=== PATIENT | male | born 1935 | race Two or more races ===

== ENCOUNTER → 2017-05-11 | Outpatient (CLI) | payer OTHER ==
[2016-05-16 22:12] VITALS: BP 193/81
[~2017-05-11] MED LIST: ATORVASTATIN CA80 MG PO; AZIT250T6 PO; DOXA8TAB2 PO; GABA-585 PO; GADOBUTROL 10 MMOL/10 ML VIAL IV ONE; GUAI-108 PO; LISI2.5T PO; LOSA100T6 PO; METF850T2 PO; PRED-220 PO
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
== END | disposition home or self-care (01) ==
LOC: KCIC MRI 09:57
PROVIDERS: ATTEND Family Medicine
DX: M51.36 Other intervertebral disc degeneration, lumbar region (principal); M51.46 Schmorl's nodes, lumbar region; M43.16 Spondylolisthesis, lumbar region; M48.061 Spinal stenosis, lumbar region without neurogenic claudication; R20.0 Anesthesia of skin
CPT/HCPCS: 72158; 82565; A9585

== ENCOUNTER → 2017-07-03 | Outpatient (CLI) | payer OTHER | END | disposition home or self-care (01) | LOC: KCIC MRI 11:17 | DX: M22.42 Chondromalacia patellae, left knee (principal); M62.58 Muscle wasting and atrophy, not elsewhere classified, other site; M25.462 Effusion, left knee; R60.0 Localized edema | CPT/HCPCS: 73562; 73721 ==

== ENCOUNTER 2017-07-04 08:58 | Outpatient (CLI) | payer OTHER ==
[2017-07-04] MEDS ORDERED: CONTRAST GIVEN MC ×2 (09:30)
[2017-07-04] MEDS: IOHEXOL 180 MG/ML 10 ML VIAL. IT ×2 (10:00)
== END 2017-07-04 11:45 | disposition home or self-care (01) ==
LOC: RAD 08:58
DX: M51.16 Intervertebral disc disorders with radiculopathy, lumbar region (principal); M48.061 Spinal stenosis, lumbar region without neurogenic claudication; M51.46 Schmorl's nodes, lumbar region; I70.8 Atherosclerosis of other arteries
CPT/HCPCS: 72132; 72265; Q9965

== ENCOUNTER → 2017-07-28 | Outpatient (CLI) | payer OTHER ==
[~2017-07-28] MED LIST changes: -ATORVASTATIN CA80 MG PO; -AZIT250T6 PO; -DOXA8TAB2 PO; -GABA-585 PO; -GADOBUTROL 10 MMOL/10 ML VIAL IV ONE; -GUAI-108 PO; +IOHEXOL 180 MG/ML 10 ML VIAL.; -LISI2.5T PO; -LOSA100T6 PO; -METF850T2 PO; -PRED-220 PO; +methylPREDNISolone ACETATE 40 MG/ML VIAL.; +methylPREDNISolone ACETATE 80 MG/ML VIAL.
== END ==
LOC: PNCL 10:19
DX: M51.16 Intervertebral disc disorders with radiculopathy, lumbar region (principal); M48.061 Spinal stenosis, lumbar region without neurogenic claudication; M96.1 Postlaminectomy syndrome, not elsewhere classified; E78.00 Pure hypercholesterolemia, unspecified; I10 Essential (primary) hypertension; E11.9 Type 2 diabetes mellitus without complications; Z98.890 Other specified postprocedural states; Z82.49 Family history of ischemic heart disease and other diseases of the circulatory system
CPT/HCPCS: 62323; J1030; J1040; Q9965

== ENCOUNTER → 2017-08-11 | Outpatient (CLI) | payer OTHER | END | disposition home or self-care (01) | LOC: PNCL 09:40 | DX: M48.061 Spinal stenosis, lumbar region without neurogenic claudication (principal); M96.1 Postlaminectomy syndrome, not elsewhere classified; G89.29 Other chronic pain; I10 Essential (primary) hypertension; E11.9 Type 2 diabetes mellitus without complications; E78.00 Pure hypercholesterolemia, unspecified; Z98.890 Other specified postprocedural states; Z79.899 Other long term (current) drug therapy; Z86.79 Personal history of other diseases of the circulatory system | CPT/HCPCS: G0463 ==

== ENCOUNTER → 2017-08-25 | Outpatient (CLI) | payer OTHER | LOC: PNCL 09:03 | DX: M54.16 Radiculopathy, lumbar region (principal); M48.061 Spinal stenosis, lumbar region without neurogenic claudication; M96.1 Postlaminectomy syndrome, not elsewhere classified; E78.00 Pure hypercholesterolemia, unspecified; I10 Essential (primary) hypertension; E11.9 Type 2 diabetes mellitus without complications; Z82.49 Family history of ischemic heart disease and other diseases of the circulatory system | CPT/HCPCS: 62323; J1030; J1040; Q9965 ==

== ENCOUNTER → 2017-09-08 | Outpatient (CLI) | payer OTHER | END | disposition home or self-care (01) | LOC: PNCL 09:09 | DX: M54.16 Radiculopathy, lumbar region (principal); M48.061 Spinal stenosis, lumbar region without neurogenic claudication | CPT/HCPCS: G0463 ==

== ENCOUNTER → 2017-09-22 | Outpatient (CLI) | payer OTHER | END | disposition home or self-care (01) | LOC: PNCL 09:02 | DX: M48.061 Spinal stenosis, lumbar region without neurogenic claudication (principal); M96.1 Postlaminectomy syndrome, not elsewhere classified; M54.16 Radiculopathy, lumbar region; I10 Essential (primary) hypertension; E11.9 Type 2 diabetes mellitus without complications; E78.00 Pure hypercholesterolemia, unspecified; Z98.890 Other specified postprocedural states; Z82.49 Family history of ischemic heart disease and other diseases of the circulatory system; Z86.79 Personal history of other diseases of the circulatory system | CPT/HCPCS: 62323; J1030; J1040; Q9965 ==

== ENCOUNTER → 2018-04-09 | Outpatient (CLI) | payer OTHER ==
[2017-07-04 10:42] VITALS: BP 108/68
[~2018-04-09] MED LIST changes: +ACET325T9 PO; +ATORVASTATIN CA80 MG PO; +AZIT250T6 PO; +DOXA2TAB PO; +DOXA8TAB2 PO; +GABA-585 PO; +GABA-586 PO; +GUAI-108 PO; -IOHEXOL 180 MG/ML 10 ML VIAL.; +LISI-338 PO; +LISI2.5T PO; +LOSA100T7 PO; +METF500T16 PO; +METF850T8 PO; +OXYC-323 PO; +PRED-220 PO; -methylPREDNISolone ACETATE 40 MG/ML VIAL.; -methylPREDNISolone ACETATE 80 MG/ML VIAL.
== END | disposition home or self-care (01) ==
LOC: PMGWOUND 13:19
PROVIDERS: ATTEND Emergency Medicine Undersea and Hyperbaric Medicine
DX: E11.622 Type 2 diabetes mellitus with other skin ulcer (principal); L97.222 Non-pressure chronic ulcer of left calf with fat layer exposed; I12.9 Hypertensive chronic kidney disease with stage 1 through stage 4 chronic kidney disease, or unspecified chronic kidney disease; E11.22 Type 2 diabetes mellitus with diabetic chronic kidney disease; N18.9 Chronic kidney disease, unspecified; G89.29 Other chronic pain; E78.5 Hyperlipidemia, unspecified; G47.33 Obstructive sleep apnea (adult) (pediatric); M19.90 Unspecified osteoarthritis, unspecified site; G83.14 Monoplegia of lower limb affecting left nondominant side; N40.1 Benign prostatic hyperplasia with lower urinary tract symptoms; K58.9 Irritable bowel syndrome, unspecified; E78.00 Pure hypercholesterolemia, unspecified; E66.01 Morbid (severe) obesity due to excess calories; Z68.36 Body mass index [BMI] 36.0-36.9, adult; Z87.891 Personal history of nicotine dependence
CPT/HCPCS: 97597

== ENCOUNTER → 2018-04-16 | Outpatient (CLI) | payer OTHER ==
[2017-07-04 10:42] VITALS: BP 108/68
[~2018-04-16] MED LIST changes: -OXYC-323 PO; +OXYC1TAB15 PO
== END | disposition home or self-care (01) ==
LOC: PMGWOUND 13:13
PROVIDERS: ATTEND Emergency Medicine Undersea and Hyperbaric Medicine
DX: E11.622 Type 2 diabetes mellitus with other skin ulcer (principal); L97.222 Non-pressure chronic ulcer of left calf with fat layer exposed; I12.9 Hypertensive chronic kidney disease with stage 1 through stage 4 chronic kidney disease, or unspecified chronic kidney disease; E11.22 Type 2 diabetes mellitus with diabetic chronic kidney disease; N18.9 Chronic kidney disease, unspecified; E78.5 Hyperlipidemia, unspecified; G89.29 Other chronic pain; M19.90 Unspecified osteoarthritis, unspecified site; G47.33 Obstructive sleep apnea (adult) (pediatric); N40.1 Benign prostatic hyperplasia with lower urinary tract symptoms; E66.01 Morbid (severe) obesity due to excess calories; Z68.36 Body mass index [BMI] 36.0-36.9, adult; Z87.891 Personal history of nicotine dependence
CPT/HCPCS: 11042

== ENCOUNTER → 2018-04-23 | Outpatient (CLI) | payer OTHER ==
[2017-07-04 10:42] VITALS: BP 108/68
[~2018-04-23] MED LIST changes: -GABA-586 PO; +GABA300C18 PO; +LOSA100T14 PO; -LOSA100T7 PO
== END | disposition home or self-care (01) ==
LOC: PMGWOUND 10:32
PROVIDERS: ATTEND Emergency Medicine Undersea and Hyperbaric Medicine
DX: E11.622 Type 2 diabetes mellitus with other skin ulcer (principal); L97.222 Non-pressure chronic ulcer of left calf with fat layer exposed; I12.9 Hypertensive chronic kidney disease with stage 1 through stage 4 chronic kidney disease, or unspecified chronic kidney disease; E11.22 Type 2 diabetes mellitus with diabetic chronic kidney disease; N18.9 Chronic kidney disease, unspecified; G89.29 Other chronic pain; E78.5 Hyperlipidemia, unspecified; M19.90 Unspecified osteoarthritis, unspecified site; G47.33 Obstructive sleep apnea (adult) (pediatric); N40.1 Benign prostatic hyperplasia with lower urinary tract symptoms; E78.00 Pure hypercholesterolemia, unspecified; E66.01 Morbid (severe) obesity due to excess calories; Z68.36 Body mass index [BMI] 36.0-36.9, adult; Z87.891 Personal history of nicotine dependence
CPT/HCPCS: 97597

== ENCOUNTER → 2018-04-30 | Outpatient (CLI) | payer OTHER ==
[2017-07-04 10:42] VITALS: BP 108/68
== END | disposition home or self-care (01) ==
LOC: PMGWOUND 10:06
PROVIDERS: ATTEND Emergency Medicine Undersea and Hyperbaric Medicine
DX: E11.622 Type 2 diabetes mellitus with other skin ulcer (principal); L97.222 Non-pressure chronic ulcer of left calf with fat layer exposed; I12.9 Hypertensive chronic kidney disease with stage 1 through stage 4 chronic kidney disease, or unspecified chronic kidney disease; E11.22 Type 2 diabetes mellitus with diabetic chronic kidney disease; N18.9 Chronic kidney disease, unspecified; G89.29 Other chronic pain; E78.00 Pure hypercholesterolemia, unspecified; E78.5 Hyperlipidemia, unspecified; N40.1 Benign prostatic hyperplasia with lower urinary tract symptoms; M19.90 Unspecified osteoarthritis, unspecified site; G47.33 Obstructive sleep apnea (adult) (pediatric); E66.01 Morbid (severe) obesity due to excess calories; Z87.891 Personal history of nicotine dependence; Z68.36 Body mass index [BMI] 36.0-36.9, adult
CPT/HCPCS: 97597

== ENCOUNTER → 2018-05-16 | Outpatient (CLI) | payer OTHER ==
[2017-07-04 10:42] VITALS: BP 108/68
== END | disposition home or self-care (01) ==
LOC: PMGWOUND 10:02
PROVIDERS: ATTEND Preventive Medicine Undersea and Hyperbaric Medicine
DX: E11.622 Type 2 diabetes mellitus with other skin ulcer (principal); L97.222 Non-pressure chronic ulcer of left calf with fat layer exposed; I12.9 Hypertensive chronic kidney disease with stage 1 through stage 4 chronic kidney disease, or unspecified chronic kidney disease; E11.22 Type 2 diabetes mellitus with diabetic chronic kidney disease; N18.9 Chronic kidney disease, unspecified; G89.29 Other chronic pain; E78.00 Pure hypercholesterolemia, unspecified; E78.5 Hyperlipidemia, unspecified; G47.33 Obstructive sleep apnea (adult) (pediatric); M19.90 Unspecified osteoarthritis, unspecified site; N40.1 Benign prostatic hyperplasia with lower urinary tract symptoms; E66.01 Morbid (severe) obesity due to excess calories; Z68.36 Body mass index [BMI] 36.0-36.9, adult; Z87.891 Personal history of nicotine dependence
CPT/HCPCS: 11042

== ENCOUNTER → 2018-05-23 | Outpatient (CLI) | payer OTHER ==
[2017-07-04 10:42] VITALS: BP 108/68
== END | disposition home or self-care (01) ==
LOC: PMGWOUND 10:06
PROVIDERS: ATTEND Preventive Medicine Undersea and Hyperbaric Medicine
DX: E11.622 Type 2 diabetes mellitus with other skin ulcer (principal); L97.222 Non-pressure chronic ulcer of left calf with fat layer exposed; I12.9 Hypertensive chronic kidney disease with stage 1 through stage 4 chronic kidney disease, or unspecified chronic kidney disease; E11.22 Type 2 diabetes mellitus with diabetic chronic kidney disease; N18.9 Chronic kidney disease, unspecified; E78.5 Hyperlipidemia, unspecified; M19.90 Unspecified osteoarthritis, unspecified site; G47.33 Obstructive sleep apnea (adult) (pediatric); N40.1 Benign prostatic hyperplasia with lower urinary tract symptoms; I87.2 Venous insufficiency (chronic) (peripheral); E78.00 Pure hypercholesterolemia, unspecified; E66.01 Morbid (severe) obesity due to excess calories; Z68.36 Body mass index [BMI] 36.0-36.9, adult; Z87.891 Personal history of nicotine dependence
CPT/HCPCS: 97597

== ENCOUNTER → 2018-05-30 | Outpatient (CLI) | payer OTHER ==
[2017-07-04 10:42] VITALS: BP 108/68
== END | disposition home or self-care (01) ==
LOC: PMGWOUND 10:02
PROVIDERS: ATTEND Preventive Medicine Undersea and Hyperbaric Medicine
DX: T63.331D Toxic effect of venom of brown recluse spider, accidental (unintentional), subsequent encounter (principal); E11.622 Type 2 diabetes mellitus with other skin ulcer; L97.222 Non-pressure chronic ulcer of left calf with fat layer exposed; I13.10 Hypertensive heart and chronic kidney disease without heart failure, with stage 1 through stage 4 chronic kidney disease, or unspecified chronic kidney disease; E11.22 Type 2 diabetes mellitus with diabetic chronic kidney disease; N18.9 Chronic kidney disease, unspecified; G89.29 Other chronic pain; E78.5 Hyperlipidemia, unspecified; I87.2 Venous insufficiency (chronic) (peripheral); M19.90 Unspecified osteoarthritis, unspecified site; G47.33 Obstructive sleep apnea (adult) (pediatric); N40.1 Benign prostatic hyperplasia with lower urinary tract symptoms; E78.00 Pure hypercholesterolemia, unspecified; E66.01 Morbid (severe) obesity due to excess calories; Z68.36 Body mass index [BMI] 36.0-36.9, adult; Z87.891 Personal history of nicotine dependence
CPT/HCPCS: 97597

== ENCOUNTER → 2018-06-06 | Outpatient (CLI) | payer OTHER ==
[2017-07-04 10:42] VITALS: BP 108/68
== END | disposition home or self-care (01) ==
LOC: PMGWOUND 10:00
PROVIDERS: ATTEND Preventive Medicine Undersea and Hyperbaric Medicine
DX: E11.622 Type 2 diabetes mellitus with other skin ulcer (principal); L97.222 Non-pressure chronic ulcer of left calf with fat layer exposed; I12.9 Hypertensive chronic kidney disease with stage 1 through stage 4 chronic kidney disease, or unspecified chronic kidney disease; E11.22 Type 2 diabetes mellitus with diabetic chronic kidney disease; N18.9 Chronic kidney disease, unspecified; G89.29 Other chronic pain; E78.5 Hyperlipidemia, unspecified; M19.90 Unspecified osteoarthritis, unspecified site; G47.33 Obstructive sleep apnea (adult) (pediatric); N40.1 Benign prostatic hyperplasia with lower urinary tract symptoms; E78.00 Pure hypercholesterolemia, unspecified; E66.01 Morbid (severe) obesity due to excess calories; Z68.36 Body mass index [BMI] 36.0-36.9, adult; Z87.891 Personal history of nicotine dependence
CPT/HCPCS: 99214; G0463

== ENCOUNTER → 2018-06-27 | Outpatient (CLI) | payer OTHER ==
[2017-07-04 10:42] VITALS: BP 108/68
== END | disposition home or self-care (01) ==
LOC: PMGWOUND 10:29
PROVIDERS: ATTEND Preventive Medicine Undersea and Hyperbaric Medicine
DX: E11.622 Type 2 diabetes mellitus with other skin ulcer (principal); L97.222 Non-pressure chronic ulcer of left calf with fat layer exposed; I13.10 Hypertensive heart and chronic kidney disease without heart failure, with stage 1 through stage 4 chronic kidney disease, or unspecified chronic kidney disease; E11.22 Type 2 diabetes mellitus with diabetic chronic kidney disease; N18.9 Chronic kidney disease, unspecified; G89.29 Other chronic pain; E78.5 Hyperlipidemia, unspecified; M19.90 Unspecified osteoarthritis, unspecified site; G47.33 Obstructive sleep apnea (adult) (pediatric); E78.00 Pure hypercholesterolemia, unspecified; I87.2 Venous insufficiency (chronic) (peripheral); N40.1 Benign prostatic hyperplasia with lower urinary tract symptoms; Z87.891 Personal history of nicotine dependence; E66.01 Morbid (severe) obesity due to excess calories; Z68.36 Body mass index [BMI] 36.0-36.9, adult
CPT/HCPCS: 99214; G0463

== ENCOUNTER 2020-07-03 15:23 | Emergency (ER) | payer MEDICARE, OTHER ==
[~2020-07-03] VITALS: Ht 160 cm; Wt 106.8 kg
[~2020-07-03 15:23] MED LIST changes: +AMLO-187 PO; +ASPI-886 PO; +CLON0.1T12 PO; -LISI-338 PO; +LISI-517 PO; +SITA50TA PO; +TAMS0.4C97 PO
--- NOTE | 2020-07-03 16:10 | PHYS DOC ---
Past Medical History Past Medical History: Diabetes-Type II, High Cholesterol, Hypertension, Renal Disease Past Surgical History: Other Additional Past Surgical Histo: BACK SURGERY Smoking Status: Former Smoker Alcohol Use: Occasionally Drug Use: None General Adult EDM: Chief Complaint: ABDOMINAL PAIN HPI: HPI: 85-year-old male past medical history significant for hypertension, hyperlipidemia, diabetes and former tobacco dependence (quit at 47 yoa) presents the ED with complaints of "stomach pain, alot of acid," for the past 2 weeks, worse after eating, described as burning and intermittent. Denies any alcohol use/binge drinking or illicit drug use (No more than 1-2 beers daily). No associated n/v/d. Follows with Dr. Tan who has scheduled outpatient cardiology follow-up on July 17. No h/o GI evaluation, EGD or colonoscopy. No h/o anemia or blood transfusions. No h/o CAD or cardiac cath. Review of Systems: Review of Systems: Constitutional: Denies fever or chills. [] Eyes: Denies change in visual acuity. [] HENT: Denies nasal congestion or sore throat. [] Respiratory: Denies cough or shortness of breath or hemoptysis Cardiovascular: Denies chest pain or edema. [] GI: Denies nausea, vomiting, melena, hematochezia, hematemesis or diarrhea. [] : Denies dysuria or dysuria Musculoskeletal: Denies back pain or joint pain. [] Integument: Denies rash or diaphoresis Neurologic: Denies headache, neck stiffness or focal weakness or sensory changes. [] Endocrine: Denies polyuria or polydipsia. [] Lymphatic: Denies swollen glands. [] Psychiatric: Denies depression or anxiety. [] Heart Score: HEART Score for Chest Pain: HEART Score for Chest Pain Response (Comments) Value History Slighlty/Non-Suspicious 0 ECG Normal 0 Age > 65 2 Risk Factors >3 Risk Factors or Hx CAD 2 Troponin < Normal Limit 0 Total 4 Risk Factors: Risk Factors: DM, Current or recent (<one month) smoker, HTN, HLP, family history of CAD, obesity. Risk Scores: Score 0 - 3: 2.5% MACE over next 6 weeks - Discharge Home Score 4 - 6: 20.3% MACE over next 6 weeks - Admit for Clinical Observation Score 7 - 10: 72.7% MACE over next 6 weeks - Early Invasive Strategies Allergies: Allergies: Allergies Coded Allergies Type Severity Reaction Last Updated Verified No Known Drug Allergies 11/20/15 No Physical Exam: PE: Constitutional: Well developed, well nourished, no acute distress, non-toxic appearance, hypertensive but calm HENT: Normocephalic, atraumatic, arcus senilis present bl Eyes: EOMI, conjunctiva normal, no discharge. Neck: Normal range of motion, supple, Cardiovascular: S1/2 present, regular rhythm Lungs & Thorax: Speaking in full sentences, bilateral equal chest rise, no tachypnea or increased work of breathing Abdomen: soft, no tenderness, epigastric pain, obese abdomen, no grimace with palpation, no peritonitis or guarding, no Diane sign, no pain McBurney's point Skin: Warm, dry, no erythema, no rash. [] Back: No midline tenderness, no CVA tenderness. [] Extremities: No tenderness, no cyanosis, no lower extremity edema Neurologic: Alert and oriented X 3, normal motor function, normal sensory function, no focal deficits noted. [] Psychologic: Affect normal, judgement normal, mood normal. [] EKG: EKG: Sinus rhythm at 71 bpm,left axis deviation, QTC 443, no T wave inversions, no ST elevations or ST depressions Radiology/Procedures: Radiology/Procedures: IMAGING REPORT Signed PATIENT: LAKSHMI SHAH ACCOUNT: [id number] : 1935 LOCATION: ER AGE: 85 SEX: M EXAM STATUS: REG ER ORD. PHYSICIAN: AILEEN FERREIRA DO REASON: abd pain PROCEDURE: CT ABDOMEN PELVIS WO CONTRAST Exam: CT of abdomen and pelvis without contrast INDICATION: Abdominal pain TECHNIQUE: Sequential axial images through the abdomen and pelvis obtained without IV contrast. Sagittal and coronal reformatted images were reconstructed from the axial data and reviewed. Comparisons: None FINDINGS: Heart size is normal. No pericardial effusion. Strandy opacities at dependent portion lungs likely representing atelectasis. No pleural effusion. Evaluation of solid organs limited secondary to noncontrast technique. Liver, spleen, pancreas, gallbladder and adrenals are unremarkable. No perinephric inflammation or hydronephrosis. No renal or ureteral calculi are identified. Bladder is distended and appears thin-walled. Prostate is not enlarged. Diverticulosis sigmoid colon without evidence of acute diverticulitis. Otherwise, Large and small bowel are unremarkable. Appendix is not identified. No free intra-abdominal air or fluid. No obstruction. Abdominal aorta has a normal course and caliber. No enlarged abdominal lymph nodes are identified. No suspicious osseous lesions or acute fractures. IMPRESSION: Diverticulosis without evidence of acute diverticulitis. Exposure: One or more of the following in the visualized dose reduction techniques were utilized for this examination: 1. Automated exposure control 2. Adjustment of the MA and/or KV according to patient size 3. Use of iterative of reconstructive technique Electronically signed by: Regla Nova MD (07/03/2020 5:46 PM) [facility] DICTATED and SIGNED BY: REGLA NOVA MD DATE: 07/03/20 [id number] 0 Course & Med Decision Making: Course & Med Decision Making Pertinent Labs and Imaging studies reviewed. (See chart for details) On re-evaluation, epigastric pain resolved. Pain is very c/w gastritis/gerd and has been intermittent x 2 weeks. Pt does have RFs for CAD although has no active chest pain currently in ed. Bp slightly elevated but no new worsening endorgan damage. Does have chronic kidney disease-improved from prior labs. Will discharge home with strict ED return precautions were given for chest pressure, tightness or heaviness, syncope, neurologic deficits, dyspnea, nausea, vomiting or diaphoresis (ACS sxs, respiratory distress, etc). Encouraged urgent outpatient follow-up with PMD and GI. Life-threatening processes were considered but are low suspicion at this time, given history, physical exam and ED workup. Pt was educated on all prescription medications and adverse effects. All patient's questions were answered and pt was stable at time of discharge. Life/limb-threatening differential includes but is not limited to, aortic dissection, aortic aneurysm, acute coronary syndrome, surgical abdomen (appendicitis, cholecystitis, ischemic bowel, strangulated hernia, etc), bowel obstruction or volvulus, bladder outlet obstruction, gastrointestinal bleeding, inflammatory bowel disease, peptic ulcer disease, ACS/CAD, sepsis, diverticular disease, ureterolithiasis, nephrolithiasis, testicular torsion, or genitourinary infection. I spoken with the patient and her caregivers. I explained the patient's condition, diagnoses and treatment plan based on the information available to me at this time. I have answered the patient and her caregiver's questions and addressed any concerns. The patient and her caregivers have a good under standing of patient's diagnosis, condition and treatment plan as can be expected at this point. Vital signs have been stable. Patient's condition is stable and appropriate for discharge from the emergency department. Patient will pursue further outpatient evaluation with primary care physician or other designated or consulting physician as outlined in the discharge instructions. The patient and/or caregivers are agreeable to this plan of care and follow-up instructions have been explained in detail. The patient and/or caregivers have received these instructions in written form and have expressed an understanding of the discharge instructions. The patient and/or caregivers are aware that any significant change of condition or worsening of symptoms shou ld prompt immediate return to this or the closest emergency department or call to 1. Crescencio Disclaimer: Crescencio Disclaimer: This electronic medical record was generated, in whole or in part, using a voice recognition dictation system. Departure Departure Impression: Primary Impression: Epigastric abdominal pain Additional Impression: Diverticulosis Disposition: 01 DC HOME SELF CARE/HOMELESS Condition: STABLE Referrals: KAUSHIK TAN MD (PCP) FOLLOW UP WITH FAMILY MEDICINE: Family Medicine Address: [address] [place] [id number] Patient Instructions: Abdominal Pain, Gastritis, Adult Additional Instructions: FOLLOW UP WITH GASTROENTEROLOGY: Gastroenterology [facility] Address: [address] [place] [address] EMERGENCY DEPARTMENT GENERAL DISCHARGE INSTRUCTIONS Thank you for coming to [facility] Emergency Department (ED) today and trusting us with you care. We trust that you had a positive experience in our Emergency Department. If you wish to speak to the department management, you may call the Director at [phone]. YOUR FOLLOW UP INSTRUCTIONS ARE FOLLOWS: 1. Do you have a private Doctor? If you do not have a private doctor, please ask for a resource list of physicians or clinics that may be able to assist you with follow up care. 2. The Emergency Physicain has interpreted your x-rays. The X-Ray specialist will also review them. If there is a change in the findings, you will be notified in 48 hours when at all possible. 3. A lab test or culture has been done, your results will be reviewed and you will be notified if you need a change in treatment. ADDITIONAL INSTRUCTIONS AND INFORMATION: 1. Your care today has been supervised by a physician who is specially trained in emergency care. Many problems require more than one evaluation for a complete diagnosis and treatment. We recommend that you schedule your follow up appointment as recommended to ensure complete treatment of you illness or injury. If you are unable to obtain follow up care and continue to have a problem, or if your condition worsens, we recommend that you return to the ED. 2. We are not able to safely determine your condition over the phone nor are we able to give sound medical advice over the phone. For these safety reasons, if you call for medical advice we will ask you to come to the ED for further evaluation. 3. If you have any questions regarding these discharge instructions please call the ED at [phone]. SAFETY INFORMATION: In the interest of safety, wellness, and injury prevention; we encourage you to wear your sealbelt, if you smoke; quite smoking, and we encourage family to use a protective helmet for bicycling and other sporting events that present an increased risk for head injury. IF YOUR SYMPTOMS WORSEN OR NEW SYMPTOMS DEVELOP, OR YOU HAVE CONCERNS ABOUT YOUR CONDITION; OR IF YOUR CONDITION WORSENS WHILE YOU ARE WAITING FOR YOUR FOLLOW UP APPOINTMENT; EITHER CONTACT YOUR PRIMARY CARE DOCTOR, THE PHYSICIAN WHOSE NAME AND NUMBER YOU WERE GIVEN, OR RETURN TO THE ED IMMEDIATELY. Scripts Famotidine (PEPCID) 20 Mg Tablet 20 MG PO BID for 14 Days, #28 TAB Prov: AILEEN FERREIRA DO 07/03/20 AILEEN FERREIRA DO Jul 03, 2020 16:10
[2020-07-03] MEDS ORDERED: METOCLOPRAMIDE HCL 10 MG/2 ML VIAL. IVP ONE (16:15)
[2020-07-03] MEDS ORDERED: FAMOTIDINE 20 MG/2 ML VIAL IVP ONE (16:15)
[2020-07-03 16:45] LABS: BASO % 0 % (0-3); EOS # 0.1 x10^3/uL (0.0-0.7); EOS % 2 % (0-3); HEMATOCRIT 36.1 % (39.0-53.0); HEMOGLOBIN 12.2 g/dL (13.0-17.5); LYMPH # 2.3 x10^3/uL (1.0-4.8); LYMPH % 34 % (24-48); MEAN CORPUSCULAR HEMOGLOBIN 33 pg (25-35); MEAN CORPUSCULAR HGB CONC 34 g/dL (31-37); MEAN CORPUSCULAR VOLUME 97 fL (79-100); MONO # 0.7 x10^3/uL (0.0-1.1); MONO % 10 % (0-9); NEUT # 3.7 x10^3/uL (1.8-7.7); NEUT % 54 % (31-73); PLATELET COUNT 183 x10^3/uL (140-400); RED BLOOD COUNT 3.72 x10^6/uL (4.30-5.70); RED CELL DISTRIBUTION WIDTH 13.4 % (11.5-14.5); WHITE BLOOD COUNT 6.8 x10^3/uL (4.0-11.0)
[2020-07-03 16:48] LABS: CALCIUM 9.3 mg/dL (8.5-10.1); CREATININE 1.7 mg/dL (0.7-1.3); GFR 38.7; POTASSIUM 4.9 mmol/L (3.5-5.1)
[2020-07-03 16:54] LABS: ALBUMIN 3.2 g/dL (3.4-5.0); DIRECT BILIRUBIN 0.1 mg/dL (0.0-0.2); TOTAL BILIRUBIN 0.3 mg/dL (0.2-1.0); TOTAL PROTEIN 7.2 g/dL (6.4-8.2)
--- NOTE | 2020-07-03 17:48 | RAD ---
Exam: CT of abdomen and pelvis without contrast INDICATION: Abdominal pain TECHNIQUE: Sequential axial images through the abdomen and pelvis obtained without IV contrast. Sagit sebas and coronal reformatted images were reconstructed from the axial data and reviewed. Comparisons: None FINDINGS: Heart size is normal. No pericardial effusion. Strandy opacities at dependent portion lungs likely re presenting atelectasis. No pleural effusion. Evaluation of solid organs limited secondary to noncontrast technique. Liver, spleen, pancreas, gallbladder and adrenals are unremarkable. No perinephric inflammation or hydronephrosis. No renal or ureteral calculi are identified. Bladder is distended and appears thin-walled. Prostate is not enlarged. Diverticulosis sigmoid colon without evidence of acute diverticulitis. Otherwise, Large and small alexi wel are unremarkable. Appendix is not identified. No free intra-abdominal air or fluid. No obstructio n. Abdominal aorta has a normal course and caliber. No enlarged abdominal lymph nodes are identified. No suspicious osseous lesions or acute fractures. IMPRESSION: Diverticulosis without evidence of acute diverticulitis. Exposure: One or more of the following in the visualized dose reduction techniques were utilized for this examination: 1. Automated exposure control 2. Adjustment of the MA and/or KV according to patient size 3. Use of iterative of reconstructive technique Electronically signed by: Regla Dolan MD (07/03/2020 5:46 PM) [facility]
[2020-07-03] MEDS ORDERED: FAMO-63 PO (17:53)
[2020-07-03 18:20] VITALS: BP 150/87
--- NOTE | 2020-07-03 18:44 | EKG ---
[facility] [address] [place] [address] Test Date: 2020-07-03 Test Time: 15:59:57 Pat Name: LAKSHMI SHAH Department: Room: Gender: M Home Connect Lpn: : 1935 Requested By: AILEEN FERREIRA Order Number: [id number] Reading MD: Measurements Intervals [place] Rate: 71 P: 42 AR: 154 QRS: -44 QRSD: 104 T: 43 QT: 408 QTc: 443 Interpretive Statements SINUS RHYTHM ABNORMAL LEFT AXIS DEVIATION LEFT ANTERIOR FASCICULAR BLOCK ABNORMAL ECG RI6.02 No previous ECG available for comparison
== END 2020-07-03 18:34 | disposition home or self-care (01) ==
LOC: ER 15:23
DX: K57.90 Diverticulosis of intestine, part unspecified, without perforation or abscess without bleeding (principal); E11.9 Type 2 diabetes mellitus without complications; E78.00 Pure hypercholesterolemia, unspecified; I10 Essential (primary) hypertension; E78.5 Hyperlipidemia, unspecified; Z98.890 Other specified postprocedural states; Z87.891 Personal history of nicotine dependence
CPT/HCPCS: 36415; 74176; 80048; 80076; 82550; 83690; 84484; 85025; 93005; 96374; 96375; 99285; J2765; J3490

== ENCOUNTER → 2020-12-10 | Outpatient (CLI) | payer MEDICARE ==
[~2020-12-10] MED LIST changes: +FAMO-63 PO
--- NOTE | 2020-12-10 18:15 | KCIC ---
MRI of the lumbar spine without contrast 12/10/2020 CLINICAL HISTORY: Low back pain which radiates down the left hip and thigh. Neurogenic claudication. TECHNIQUE: Unenhanced T1-weighted and T2-weighted sagittal and axial and inversion recovery sagittal images of the lumbar spine were obtained. FINDINGS: Comparison study is dated 05/11/2017. Very mild S-shaped curvature of the thoracolumbar spine is seen. Degenerative signal changes and loss of height are seen involving all of the disks of the lumbar spine. Degenerative signal changes are s een within the marrow surrounding these discs. The conus medullaris is normal morphology, position, a nd signal characteristics. At the L1-2 and L2-3 disc spaces there are minimal to mild generalized disc bulges. Degenerative reveles ges are seen involving the facet joints bilaterally. There is mild ligament flavum hypertrophy bilate rally. These findings do not result in significant central spinal canal or neural foraminal stenosis. At the L3-4 disc space the patient is post left hemilaminotomy. There is a moderate generalized disc bulge. Degenerative changes are seen involving the facet joints bilaterally. There is moderate to sev ere right ligamentum flavum hypertrophy. These findings when combined result in severe right greater than left central spinal canal stenosis. Moderate to severe right greater than left neural foraminal stenosis is seen. At the L4-5 disc space, the patient is post left hemilaminotomy. There is a moderate generalized disc bulge. Degenerative changes are seen involving the facet joints bilaterally. There is moderate right ligamentum flavum hypertrophy bilaterally. These findings when combined result in mild to moderate r ight greater than left central spinal canal stenosis. Mild bilateral neural foraminal stenosis is see n. At the L5-S1 disc space there is a moderate generalized disc bulge. Degenerative changes are seen inv olving the facet joints bilaterally. There is moderate ligamentum flavum hypertrophy bilaterally. The se findings when combined result in mild central spinal canal stenosis. Mild to moderate bilateral ne ural foraminal stenosis is seen. The degenerative changes have progressed slightly since the previous examination. IMPRESSION: 1. Post left hemilaminotomy at L3-4 and L4-5. 2. The changes of degenerative disc disease are seen throughout the lumbar spine. These findings resu lt in severe right greater than left central spinal canal stenosis at L3-4, mild to moderate right gr eater than left central spinal canal stenosis at L4-5 and mild central spinal canal stenosis at L5-S1 . Moderate to severe right greater than left neural foraminal stenosis is seen at L3-4. Mild bilatera l neural foraminal stenosis is seen at L4-5. Mild to moderate bilateral neural foraminal stenosis is seen at L5-S1. Electronically signed by: Jovanny Whittaker MD (12/10/2020 6:12 PM) [id number]
--- NOTE | 2020-12-11 11:57 | KCIC ---
XR HIP (WITH OR WITHOUT PELVIS)LEFT 1 VIEW History: Reason: LEFT HIP PAIN / Spl. Instructions: Left hip and thigh pain for yrs, getting worse. / History: Technique: AP view the pelvis and additional view of the left hip. Comparison: None. Findings: Normal alignment. No fracture. Lower lumbar spondylosis. Osteopenia. Vascular calcifications. Bony fu flip of the superior pubic symphysis. Impression: 1. No acute osseous abnormality. 2. Lower lumbar spondylosis. Electronically signed by: Ambrose Cardoza DO (12/11/2020 11:54 AM) [id number]
== END ==
LOC: KCIC MRI 15:24
PROVIDERS: ATTEND Family Medicine
DX: M47.817 Spondylosis without myelopathy or radiculopathy, lumbosacral region (principal); M48.07 Spinal stenosis, lumbosacral region; M51.27 Other intervertebral disc displacement, lumbosacral region; M51.36 Other intervertebral disc degeneration, lumbar region; M85.88 Other specified disorders of bone density and structure, other site; M43.8X5 Other specified deforming dorsopathies, thoracolumbar region; M25.852 Other specified joint disorders, left hip
CPT/HCPCS: 72148; 73501

== ENCOUNTER → 2021-01-14 | Outpatient (CLI) | payer MEDICARE, MEDICAID ==
[~2021-01-14] MED LIST changes: -LISI2.5T PO; +LISI2.5T12 PO
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
== END ==
LOC: PNCL 11:23
PROVIDERS: ATTEND Anesthesiology
DX: M79.662 Pain in left lower leg (principal); M54.5 Low back pain; I10 Essential (primary) hypertension; E11.9 Type 2 diabetes mellitus without complications; M19.90 Unspecified osteoarthritis, unspecified site; Z79.899 Other long term (current) drug therapy; Z98.890 Other specified postprocedural states
CPT/HCPCS: 99205; G0463

== ENCOUNTER → 2021-01-29 | Outpatient (CLI) | payer MEDICARE, MEDICAID ==
[~2021-01-29] MED LIST changes: +IOHEXOL 180 MG/ML 10 ML VIAL. ONE; +methylPREDNISolone ACETATE 80 MG/ML VIAL. ONE
--- NOTE | 2021-01-29 11:48 | PDOC ---
Progress Note - Pain Clinic Date of Service: DOS: DATE: 01/29/21 TIME: 11:45 Diagnosis: Dx: Lumbar radiculopathy lumbar degenerative disease lumbar spinal stenosis and post lumbar laminectomy syndrome History or Present Illness: HPI: 86-year-old male returns for follow-up status post evaluation complaining of low back and left lower extremity pain posterior gluteus posterior lateral thigh lateral anterior thigh anteromedial thigh into the medial lower leg at times patient reports is worse with walking standing changing positions better with sitting or laying down does not wake him sleep occasionally patient reports is a 6 on scale 10 is worst average and least is a 6 today. Patient reports no loss of motor function no bowel or bladder incontinence patient reports pain is a robinson and tight stabbing on and off in intensity patient reports has some weakness in the left lower extremity with ambulation but no overt falls and not using any assistive devices to ambulate today. Physical Exam: VS: Blood pressure is 151/85 pulse 64 respirations 18 temperature 99.0 F weight is 235 pounds PE: PHYSICAL EXAMINATION: GENERAL: The patient is awake, alert, oriented, appropriate, very pleasant in [facility], patient accompanied by his daughter who helps translate and interpret [place] to Samoan and vice versa. HEENT: Shows normocephalic, atraumatic. Extraocular movements are intact and symmetrical. Oral cavity: Mucous membranes moist and pink. Dentition is intact. NECK: Shows anterior throat supple without palpable lymphadenopathy noted. Swallow reflex symmetrical. CHEST: Shows normal on inspection. Breath sounds are clear bilaterally, no rales rhonchi or wheezes. HEART: Shows S1, S2 clear. No murmurs auscultated. ABDOMEN: Soft, nontender, nondistended, obese. No palpable organomegaly is noted. BACK: Shows spine grossly in the midline. Normal-appearing cervical lordotic curvature. There is slightly increased thoracic kyphosis, some minor flattening of the lumbar lordotic curvature. Lumbar paraspinous muscles show symmetrical on inspection, on palpation shows some moderate tenderness diffusely throughout the upper, middle and lower distribution of the paraspinous muscles without specific trigger points, without radiation of pain. The patient has good rotational motion of the lumbar spine, both laterally as well as extension and flexion without significant difficulty. EXTREMITIES: Lower extremities show deep tendon reflexes 1+ in the patellar and tendo calcaneus tendons on the left and 2+ on the right. Motor exam is 5 on a scale of 5 with right dorsiflexion, extension, quadriceps and hamstring flexion and 4/5 on the left. Peripheral pulses are 1 posterior tibial. No peripheral edema is noted bilaterally. Lower extremities are warm and dry to touch, equal in color and appearance. SKIN: Shows warm and dry, good turgor. No edema. No sores, rashes or bruising throughout. Procedure: Procedure: Options were discussed with the patient. Patient chart was reviewed as his current medication regimen updated current review of systems updated today as well. We will proceed with a lumbar epidural steroid injection today with fluoroscopic guidance. Risks were discussed including but not limited to: Bleeding, infection, possibility of epidural hematoma and subsequent neurological compromise, dural puncture, headaches, spinal cord and/or nerve damage, side effects of steroid medication, and poor results regarding pain control. Patient understands and wished to proceed. Patient return to clinic in approximate 2 weeks for follow-up, was counseled as return appointment, activity level, and side effect to be aware of. Medication Injected: Med Injected: Procedure is lumbar epidural steroid injection under local anesthetic using sterile prep and drape at the L3-4 level using C-arm fluoroscopic guidance in both AP and lateral views medications injected is 120 mg Depo-Medrol +10mL preservative-free normal saline and 2 mL contrast- condition at discharge is stable patient tolerated procedure well had no complications. Condition at Discharge: Condition at Discharge: Condition at discharge is stable, patient already procedure well and had no complications. DOTTIE PATEL MD Jan 29, 2021 11:48
--- NOTE | 2021-01-29 11:49 | PDOC4 ---
Procedure Note: ICD 10 Code: ICD 10 Code: M54.16 M 48.06 M 96.1 Procedure Note: Patient was consented for lumbar epidural steroid injection with fluoroscopic guidance. Risks were discussed including but not limited to: Bleeding, infection, possibility of epidural hematoma and subsequent neurological compromise, dural puncture, headaches, spinal cord and/or nerve damage, side effects of steroid medication, and poor results regarding pain control. Patient understands and wished to proceed. Procedure is lumbar epidural steroid injection under local anesthetic using saturnino rile prep and drape at the L3-4 level using C-arm fluoroscopic guidance in both AP and lateral views medications injected is 120 mg Depo-Medrol +10mL preservative-free normal saline and 2 mL contrast- condition at discharge is stable patient tolerated procedure well had no complications. DOTTIE PATEL MD Jan 29, 2021 11:49
== END | disposition home or self-care (01) ==
LOC: PNCL 10:36
PROVIDERS: ATTEND Anesthesiology
DX: M51.16 Intervertebral disc disorders with radiculopathy, lumbar region (principal); M48.061 Spinal stenosis, lumbar region without neurogenic claudication; M96.1 Postlaminectomy syndrome, not elsewhere classified; I10 Essential (primary) hypertension; E78.00 Pure hypercholesterolemia, unspecified; E11.9 Type 2 diabetes mellitus without complications; Z87.891 Personal history of nicotine dependence; Z79.82 Long term (current) use of aspirin; Z79.84 Long term (current) use of oral hypoglycemic drugs; Z79.899 Other long term (current) drug therapy; Z98.890 Other specified postprocedural states; Z72.89 Other problems related to lifestyle
CPT/HCPCS: 62323; J1040; Q9965

== ENCOUNTER → 2021-02-12 | Outpatient (CLI) | payer MEDICARE, MEDICAID ==
[~2021-02-12] MED LIST changes: -IOHEXOL 180 MG/ML 10 ML VIAL. ONE; -methylPREDNISolone ACETATE 80 MG/ML VIAL. ONE
--- NOTE | 2021-02-12 10:33 | PDOC ---
Progress Note - Pain Clinic Date of Service: DOS: DATE: 02/12/21 TIME: 10:29 Diagnosis: Dx: Lumbar radiculopathy with lumbar degenerative disc disease and lumbar spinal stenosis History or Present Illness: HPI: 86-year-old male returns for follow-up status post lumbar epidural steroid injection x1. Patient reports about 60 to 65% improvement initially now about 50% improvement overall but still improved the low back and left lower extremity patient reports has been increasing his distance walking doing household activities travel with greater ease and comfort sleeping better at night much better with sitting or laying down but worse with standing walking patient reports still significant pain in the low back now returning in the posterior gluteus posterior lateral thigh lateral anterior thigh anteromedial thigh and L4-5 dermatomal distribution on the left side. Patient reports is aching and shooting in the leg beginning to get back to baseline but still not quite there patient reports is a 5 on a scale of 10 is worse over the past week to an average to its least and is a 2 today. Patient reports better with sitting lying down generally does not awaken him from sleep. Patient reports no bowel incontinence. Patient continues to do stretching and strengthening exercises daily and is walking daily as best to his ability not use any assistive devices currently. Physical Exam: VS: Blood pressure is 129/84 pulse 63 respirations 18 temperature 98.2 F weight is 234 pounds PE: PHYSICAL EXAMINATION: GENERAL: The patient is awake, alert, oriented, appropriate, very pleasant in demeanor HEENT: Shows normocephalic, atraumatic. Extraocular movements are intact and symmetrical. Oral cavity: Mucous membranes moist and pink. NECK: Shows anterior throat supple without palpable lymphadenopathy noted. Swallow reflex symmetrical. CHEST: Shows normal on inspection. Breath sounds are clear bilaterally, distant but no rales or rhonchi. HEART: Shows S1, S2 clear. No murmurs auscultated. ABDOMEN: Soft, nontender, nondistended, obese. No palpable organomegaly is noted. BACK: Shows spine grossly in the midline. Normal-appearing cervical lordotic curvature. There is slightly increased thoracic kyphosis, some flattening of the lumbar lordotic curvature with well-healed surgical scar. Lumbar paraspinous muscles show symmetrical on inspection, on palpation shows some moderate tenderness diffusely throughout the upper, middle and lower distribution of the paraspinous muscles without specific trigger points, without radiation of pain. The patient has good rotational motion of the lumbar spine, both laterally as well as extension and flexion without significant difficulty. EXTREMITIES: Lower extremities show deep tendon reflexes 1+ in the patellar and tendo calcaneus tendons. Motor exam is 5 on a scale of 5 with right dorsiflexion, extension, quadriceps and hamstring flexion and 4/5 on the left. Peripheral pulses are 1+ posterior tibial. No peripheral edema is noted bilaterally. Lower extremities are warm and dry to touch, equal in color and appearance. SKIN: Shows warm and dry, good turgor. No edema. No sores, rashes or bruising throughout. Procedure: Procedure: Options were discussed with the patient. Patient chart was reviewed as his current medication regimen updated current review of systems updated today as well. We will preauthorize patient for a additional lumbar epidural steroid injection as he did very well with the first 1 but the pain returning in the L4- 5 dermatomal distribution on the left side as previously. Once approved, patient will return for a translaminar approach L4-5 level lumbar epidural steroid injection with fluoroscopic guidance. In the meantime, patient will continue with stretching and strengthening exercise as well as walking daily as tolerated and oral analgesics as currently. Medication Injected: Med Injected: None Condition at Discharge: Condition at Discharge: Condition at discharge is stable. DOTTIE PATEL MD Feb 12, 2021 10:33
== END | disposition home or self-care (01) ==
LOC: PNCL 10:06
PROVIDERS: ATTEND Anesthesiology
DX: M51.16 Intervertebral disc disorders with radiculopathy, lumbar region (principal); M48.061 Spinal stenosis, lumbar region without neurogenic claudication; I10 Essential (primary) hypertension; E78.00 Pure hypercholesterolemia, unspecified; E11.9 Type 2 diabetes mellitus without complications; Z79.82 Long term (current) use of aspirin; Z79.84 Long term (current) use of oral hypoglycemic drugs; Z79.899 Other long term (current) drug therapy; Z98.890 Other specified postprocedural states; Z82.49 Family history of ischemic heart disease and other diseases of the circulatory system; Z72.89 Other problems related to lifestyle; Z87.891 Personal history of nicotine dependence
CPT/HCPCS: 99212; G0463

== ENCOUNTER → 2021-03-15 | Outpatient (CLI) | payer MEDICARE, MEDICAID ==
[~2021-03-15] MED LIST changes: +IOHEXOL 180 MG/ML 10 ML VIAL. ONE; +methylPREDNISolone ACETATE 40 MG/ML VIAL. ONE; +methylPREDNISolone ACETATE 80 MG/ML VIAL. ONE
--- NOTE | 2021-03-15 11:34 | PDOC4 ---
Procedure Note: ICD 10 Code: ICD 10 Code: M54.16 M4 8.06 M51.36 M 96.1 Procedure Note: Patient was consented for lumbar epidural steroid injection with fluoroscopic guidance. Risks were discussed including but not limited to: Bleeding, infection, possibility of epidural hematoma and subsequent neurological compromise, dural puncture, headaches, spinal cord and/or nerve damage, side effects of steroid medication, and poor results regarding pain control. Patient understands and wished to proceed. Procedure is lumbar epidural steroid injection under local anesthetic using sterile prep and drape at the L4-5 level using C-arm fluoroscopic guidance in both AP and lateral views medications injected is 120 mg Depo-Medrol +10mL preservative-free normal saline and 2 mL contrast- condition at discharge is stable patient tolerated procedure well had no complications. DOTTIE PATEL MD Mar 15, 2021 11:34
--- NOTE | 2021-03-15 11:34 | PDOC ---
Progress Note - Pain Clinic Date of Service: DOS: DATE: 03/15/21 TIME: 11:31 Diagnosis: Dx: Lumbar radiculopathy with lumbar degenerative disc disease lumbar spinal stenosis and lumbar postlaminectomy syndrome History or Present Illness: HPI: 86-year-old male returns for follow-up status post lumbar epidural steroid injection x1. Patient reports about 75% improvement for 2 weeks pain returning in the low back and left lower extremity posterior gluteus lateral thigh anterior thigh anterior medial thigh medial lower leg in the knee as well as the calf patient reports a 7 on scale 10 is worse over the past week 7 on average 6 its least is a 7 today patient scribes as tingling and constant burning worse with walking standing changing positions better with sitting or laying down generally does not awaken her from sleep at night patient reports initially was doing much better distance walking doing household activities travel with greater ease and comfort as well. Patient reports pain continues to radiate into the left lower extremity. Patient reports no bowel or bladder incontinence. Physical Exam: VS: Blood pressure is 145/75 pulse 84 respirations 18 temperature is 5 feet 6 inches weight is 231 pounds PE: PHYSICAL EXAMINATION: GENERAL: The patient is awake, alert, oriented, appropriate, very pleasant in [facility], patient Kumpe by his daughter who serves as shot examiner. HEENT: Shows normocephalic, atraumatic. Extraocular movements are intact and symmetrical. Oral cavity: Mucous membranes moist. NECK: Shows anterior throat supple without palpable lymphadenopathy noted. Swallow reflex symmetrical. CHEST: Shows normal on inspection. Breath sounds are clear bilaterally, distant but no rales or rhonchi. HEART: Shows S1, S2 clear. No murmurs auscultated. ABDOMEN: Soft, nontender, nondistended, obese. No palpable organomegaly is note d. BACK: Shows spine grossly in the midline. Normal-appearing cervical lordotic curvature. There is slightly increased thoracic kyphosis, some minor flattening of the lumbar lordotic curvature. Lumbar paraspinous muscles show symmetrical on inspection, on palpation shows some moderate tenderness diffusely throughout the upper, middle and lower distribution of the paraspinous muscles, but without specific trigger points, without radiation of pain. The patient has good rotational motion of the lumbar spine, both laterally as well as extension and flexion without significant difficulty. EXTREMITIES: Lower extremities show deep tendon reflexes 1 in the patellar and tendo calcaneus tendons. Motor exam is 5 on a scale of 5 with right dorsiflexion, extension, quadriceps and hamstring flexion and 4/5 on the left. Peripheral pulses are 1+ posterior tibial. No peripheral edema is noted bilaterally. Lower extremities are warm and dry. SKIN: Shows warm and dry, good turgor. No edema. No sores, rashes or bruising throughout. Procedure: Procedure: Options were discussed with the patient. Patient chart reviews his current medication regimen updated current review of systems updated today as well. We will proceed with a lumbar epidural steroid injection stable fluoroscopic guidance risks were discussed including but not limited to: Bleeding, infection, possibility of epidural hematoma and subsequent neurological compromise, dural puncture, headaches, spinal cord and/or nerve damage, side effects of steroid medication, and poor results regarding pain control. Patient understands and wished to proceed. She will return to the clinic in approximate 10 is for follow-up, was counseled return appointment, activity, and side effects beware of. Medication Injected: Med Injected: Procedure is lumbar epidural steroid injection under local anesthetic using sterile prep and drape at the L4-5 level using C-arm fluoroscopic guidance in both AP and lateral views medications injected is 120 mg Depo-Medrol +10mL preservative-free normal saline and 2 mL contrast- condition at discharge is st able patient tolerated procedure well had no complications. Condition at Discharge: Condition at Discharge: Condition at discharge stable, patient Kurt the procedure well and had no complications. DOTTIE PATEL MD Mar 15, 2021 11:34
== END | disposition home or self-care (01) ==
LOC: PNCL 10:23
PROVIDERS: ATTEND Anesthesiology
DX: M51.16 Intervertebral disc disorders with radiculopathy, lumbar region (principal); M48.061 Spinal stenosis, lumbar region without neurogenic claudication; M96.1 Postlaminectomy syndrome, not elsewhere classified; I10 Essential (primary) hypertension; E78.00 Pure hypercholesterolemia, unspecified; E11.9 Type 2 diabetes mellitus without complications; Z79.82 Long term (current) use of aspirin; Z79.899 Other long term (current) drug therapy; Z87.891 Personal history of nicotine dependence; Z72.89 Other problems related to lifestyle; Z98.890 Other specified postprocedural states; Z82.49 Family history of ischemic heart disease and other diseases of the circulatory system
CPT/HCPCS: 62323; J1030; J1040; Q9965

== ENCOUNTER → 2021-04-19 | Outpatient (CLI) | payer MEDICARE, MEDICAID ==
[~2021-04-19] MED LIST changes: -IOHEXOL 180 MG/ML 10 ML VIAL. ONE; -LISI-517 PO; +LISI5TAB15 PO; -methylPREDNISolone ACETATE 40 MG/ML VIAL. ONE; -methylPREDNISolone ACETATE 80 MG/ML VIAL. ONE
--- NOTE | 2021-04-19 08:35 | PDOC ---
Progress Note - Pain Clinic Date of Service: DOS: DATE: 04/19/21 TIME: 08:30 Diagnosis: Dx: Lumbar radiculopathy with lumbar degenerative disease lumbar spinal stenosis and lumbar postlaminectomy syndrome History or Present Illness: HPI: 86-year-old male returns for follow-up status post lumbar epidural steroid injection on March 15, 2021 with about 80% improvement for about 3 weeks following the injection patient reports pain is returning down the left leg posterior gluteus lateral thigh anterior thigh medial thigh medial lower leg worse in the mornings worse when he first gets up and then slightly eases up during the day but very significant pain in the L4-5 dermatomal distribution on the left leg. Patient reports some pain in the lower leg as well but is much less patient reports is a 7 on scale 10 is worst 5 on average 5 its least is a 5 today patient ports aching and tight on and off in intensity no motor or sensory deficits no bowel or bladder incontinence better with sitting or laying down does not awaken from sleep at night. Patient reports initially was doing much better distance walking doing household activities try with greater ease and comfort working with greater ease and sleeping much better now the pain is returning in the low back and left lower extremity as noted. Patient continues to do stretching strength exercises on his own as well as walking daily as much as tolerated. Is been taking anti-inflammatories [id number] which helps only by about 25%. Patient reports no bowel or bladder incontinence. Physical Exam: VS: Blood pressure is 154/76 pulse 66 respirations are 18 temperature 98.0 F height is 5 feet 6 inches weight is 233 pounds PE: PHYSICAL EXAMINATION: GENERAL: The patient is awake, alert, oriented, appropriate, very pleasant in [facility], patient [place] by his daughter who serves as exhibition carver and interprete r. HEENT: Shows normocephalic, atraumatic. Extraocular movements are intact and symmetrical. Oral cavity: Mucous membranes moist and pink. NECK: Shows anterior throat supple without palpable lymphadenopathy noted. Swallow reflex symmetrical. CHEST: Shows normal on inspection. Breath sounds are clear bilaterally. HEART: Shows S1, S2 clear. No murmurs auscultated. ABDOMEN: Soft, nontender, nondistended, obese. No palpable organomegaly is noted. BACK: Shows spine grossly in the midline. Normal-appearing cervical lordotic curvature. There is slightly increased thoracic kyphosis, some flattening of the lumbar lordotic curvature, with well-healed surgical scarring. Lumbar paraspinous muscles show symmetrical on inspection, on palpation shows some moderate tenderness diffusely throughout the upper, middle and lower distribution of the paraspinous muscles without specific trigger points, without radiation of pain. The patient has good rotational motion of the lumbar spine, both laterally as well as extension and flexion without significant difficulty. No tenderness over the spinous processes, sacrum or sacroiliac regions. EXTREMITIES: Lower extremities show deep tendon reflexes 1+ in the patellar and tendo calcaneus tendons. Motor exam is 5 on a scale of 5 with right dorsiflexion, extension, quadriceps and hamstring flexion and 4/5 on the left. Peripheral pulses are + posterior tibial. No peripheral edema is noted bilaterally. Lower extremities are warm and dry. SKIN: Shows warm and dry, good turgor. No edema. No sores, rashes or bruising throughout. Procedure: Procedure: Options were discussed with the patient. Patient chart was used his current medication regimen updated current review of systems updated today as well. We will preauthorize patient for a lumbar epidural steroid injection and still has clinical left L4-5 dermatomal distribution lumbar radiculopathy much better after last injection about 80% improved for 3 weeks with pain returning now following the same dermatomal pattern on the left at L4-5. Once approved we will have him return for translaminar approach L4-5 level lumbar epidural steroid injection with fluoroscopic guidance at that time. In the meantime, patient will continue with stretching through exercise as well as oral analgesics. Medication Injected: Med Injected: None Condition at Discharge: Condition at Discharge: Condition at discharge is stable. DOTTIE PATEL MD Apr 19, 2021 08:35
== END | disposition home or self-care (01) ==
LOC: PNCL 08:10
PROVIDERS: ATTEND Anesthesiology
DX: M51.16 Intervertebral disc disorders with radiculopathy, lumbar region (principal); M48.061 Spinal stenosis, lumbar region without neurogenic claudication; M96.1 Postlaminectomy syndrome, not elsewhere classified; I10 Essential (primary) hypertension; E78.00 Pure hypercholesterolemia, unspecified; E11.9 Type 2 diabetes mellitus without complications; Z79.82 Long term (current) use of aspirin; Z79.899 Other long term (current) drug therapy; Z98.890 Other specified postprocedural states
CPT/HCPCS: 99212; G0463

== ENCOUNTER → 2021-05-05 | Outpatient (CLI) | payer MEDICARE, MEDICAID ==
[~2021-05-05] MED LIST changes: +IOHEXOL 180 MG/ML 10 ML VIAL. ONE; +methylPREDNISolone ACETATE 40 MG/ML VIAL. ONE; +methylPREDNISolone ACETATE 80 MG/ML VIAL. ONE
--- NOTE | 2021-05-05 13:53 | PDOC ---
Progress Note - Pain Clinic Date of Service: DOS: DATE: 05/05/21 TIME: 13:49 Diagnosis: Dx: Lumbar radiculopathy with lumbar degenerative disease lumbar spinal stenosis and lumbar postlaminectomy syndrome History or Present Illness: HPI: 86-year-old male returns in follow-up status post lumbar epidural steroid injection x2 patient reports about 80% improvement initially for about 3 weeks and the pain returning low back left lower extremity patient reports also significant pain now in his left lateral knee and he is seeing orthopedic surgeon regarding possible replacement of the left knee and is not sure if the knee is making the back worse or the back is making the knee worse patient reports his pain is a 7 on scale 10 is worst and average over the past week and a 6 at its least is a 7 today patient scribes aching and tight in the back rating the posterior gluteus posterior left thigh lateral anterior thigh anteromedial thigh medial lower leg into the knee as well on the left side patient reports is constant with weightbearing on and off in intensity but always present patient reports is worse with walking standing changing positions and his knee is becoming more painful with stepping on stairs or climbing up steps with putting all of his weight on his left leg. Patient reports is better with sitting or laying down does not awaken her from sleep most nights. Patient reports no bowel or bladder incontinence. Physical Exam: VS: Blood pressure is 152/74 pulse 67 respirations 18 temperature 90.0 F height is 5 feet 6 inches weight 233 pounds PE: PHYSICAL EXAMINATION: GENERAL: The patient is awake, alert, oriented, appropriate, very pleasant in [facility], patient accompanied by his daughter who serves as equipment operator/laborer/supervisor. HEENT: Shows normocephalic, atraumatic. Extraocular movements are intact and symmetrical. Oral cavity: Mucous membranes moist and pink. Dentition is intact. NECK: Shows anterior throat supple without palpable lymphadenopathy noted. Swallow reflex symmetrical. CHEST: Shows normal on inspection. Breath sounds are clear bilaterally, distant but no rales or rhonchi. HEART: Shows S1, S2 clear. No murmurs auscultated. ABDOMEN: Soft, nontender, nondistended, obese. No palpable organomegaly is noted. BACK: Shows spine grossly in the midline. Normal-appearing cervical lordotic curvature. There is increased thoracic kyphosis, some flattening of the lumbar lordotic curvature, with well-healed surgical scar noted. Lumbar paraspinous muscles show symmetrical on inspection, on palpation shows some moderate tenderness diffusely throughout the upper, middle and lower distribution of the paraspinous muscles without specific trigger points, without radiation of pain. The patient has good rotational motion of the lumbar spine, both laterally as well as extension and flexion without significant difficulty. No tenderness over the spinous processes, sacrum or sacroiliac regions. EXTREMITIES: Lower extremities show deep tendon reflexes 1+ in the patellar and tendo calcaneus tendons. Motor exam is 5 on a scale of 5 with right dorsiflexion, extension, quadriceps and hamstring flexion and 4/5 on the left. Peripheral pulses are 1+ posterior tibial. No peripheral edema is noted bilaterally. Lower extremities are warm and dry. SKIN: Shows warm and dry, good turgor. No edema. No sores, rashes or bruising throughout. Procedure: Procedure: Options were discussed with the patient. Patient chart was reviewed his current medication regimen updated current review of systems updated today as well. We will proceed with a lumbar epidural steroid injection today with fluoroscopic guidance. Risks were discussed including but not limited to: Bleeding, infection, possibility of epidural hematoma and subsequent neurological compromise, dural puncture, headaches, spinal cord and/or nerve damage, side effects of steroid medication, and poor results regarding pain control. Patient understands and wished to proceed. Patient will return to the clinic in a pproximate 2 weeks for follow-up, was counseled as to return appointment, activity level, and side effect to be aware of. Medication Injected: Med Injected: Procedure is lumbar epidural steroid injection under local anesthetic using sterile prep and drape at the L4-5 level using C-arm fluoroscopic guidance in both AP and lateral views medications injected is 120 mg Depo-Medrol +10mL preservative-free normal saline and 2 mL contrast- condition at discharge is stable patient tolerated procedure well had no complications. Condition at Discharge: Condition at Discharge: Condition at discharge stable, patient tolerated the procedure well and had no complications. DOTTIE PATEL MD May 05, 2021 13:53
--- NOTE | 2021-05-05 13:53 | PDOC4 ---
Procedure Note: ICD 10 Code: ICD 10 Code: M54.16 M51.36 M4 8.06 M 96.1 Procedure Note: Patient was consented for lumbar epidural steroid injection with fluoroscopic guidance. Risks were discussed including but not limited to: Bleeding, infection, possibility of epidural hematoma and subsequent neurological compromise, dural puncture, headaches, spinal cord and/or nerve damage, side effects of steroid medication, and poor results regarding pain control. Patient understands and wished to proceed. Procedure is lumbar epidural steroid injection under local anesthetic using sterile prep and drape at the L4-5 level using C-arm fluoroscopic guidance in both AP and lateral views medications injected is 120 mg Depo-Medrol +10mL preservative-free normal saline and 2 mL contrast- condition at discharge is stable patient tolerated procedure well had no complications. DOTTIE PATEL MD May 05, 2021 13:53
== END | disposition home or self-care (01) ==
LOC: PNCL 13:15
PROVIDERS: ATTEND Anesthesiology
DX: M51.16 Intervertebral disc disorders with radiculopathy, lumbar region (principal); M48.061 Spinal stenosis, lumbar region without neurogenic claudication; M96.1 Postlaminectomy syndrome, not elsewhere classified; I10 Essential (primary) hypertension; E78.00 Pure hypercholesterolemia, unspecified; E11.9 Type 2 diabetes mellitus without complications; Z87.891 Personal history of nicotine dependence; Z79.82 Long term (current) use of aspirin; Z79.899 Other long term (current) drug therapy; Z98.890 Other specified postprocedural states; Z72.89 Other problems related to lifestyle
CPT/HCPCS: 62323; J1030; J1040; Q9965